=== PATIENT | female | born 2000 | race Two or more races ===

== ENCOUNTER 2022-04-16 18:31 | Emergency (ER) | payer OTHER ==
[~2022-04-16] VITALS: Ht 152.4 cm; Wt 68.0 kg
[2022-04-16] MEDS ORDERED: SINGULAIR10 MG PO (18:46)
[2022-04-16] MEDS ORDERED: ZOLOFT100 MG PO (18:46)
[2022-04-16] MEDS ORDERED: SYNTHROID50 MCG PO (18:46)
== END 2022-04-16 21:47 | disposition home or self-care (01) ==
LOC: ER 18:31
DX: N39.0 Urinary tract infection, site not specified (principal); E03.9 Hypothyroidism, unspecified; Z20.822 Contact with and (suspected) exposure to COVID-19